=== PATIENT | male | born 1960 | race Caucasian/White ===

== ENCOUNTER 2022-06-27 12:09 | Emergency (ER) | payer OTHER, SELFPAY ==
[2022-06-27 12:55] VITALS: BP 172/91; PULSE 53; RESP 16; TEMP 36.9; O2SAT 99; BMI 29.3
--- NOTE | 2022-06-27 13:28 | ED_ITS ---
HPI - Wound/Laceration General Time Seen by Provider: 14:00 Date Seen: 06/27/22 Chief Complaint: Laceration/Wound Stated Complaint: Smashed L thumb Time Seen by Provider: 06/27/22 13:27 Source: patient and RN notes reviewed Mode of arrival: ambulatory Limitations: no limitations History of Present Illness HPI narrative: Patient is a 61-year-old male coming into the ER ambulatory of his own accord. He was at work in the [facility] when he had a hydraulic lice smashed his left thumb. He was initially taken via ambulance to 1 of the hospitals in the [facility], he was told was going to be over 6 hour wait. He did leave and then come to [place] of his own accord. He had an IV in place from EMS. I believe he had gotten some initial narcotic pain management from EMS, believe was fentanyl. He states narcotics do make him sick. He denies any numbness or tingling but states there was a lot of pain. He states he really cannot been his thumb or move his thumb much at all along the IP joint. He feels it is not just pain. He has some lacerations with this as well but is not actively bleeding at this time. Nursing staff ascertained his tetanus to be up-to-date in December of 2020. Place: work Patient tetanus UTD: No Related Data Home Medications Medication Instructions Recorded Confirmed ascorbic acid (vitamin C) 1,000 mg 1,000 mg PO DAILY 06/27/22 06/27/22 tablet,extended release (C Complex) Allergies Allergy/AdvReac Type Severity Reaction Status Date / Time No Known Drug Allergies Allergy Verified 06/27/22 12:54 Review of Systems Narrative: Nothing else was injured, just his thumb. PFSH PFSH Social History Smoking Status: Never smoker Second hand tobacco smoke exposure: No How often do you have six or more drinks on one occasion: Daily or almost daily AUDIT-C Alcohol total score: 4 Non-prescribed substance use: denies use service: No Exam Const: Vital Signs, click to edit/add: Vital Signs - 24 hr 06/27/22 12:55 06/27/22 14:19 Temperature 98.4 F Pulse Rate [Pulse Oximeter] 53 L 55 L Respiratory Rate 16 16 Blood Pressure [Ri ght Upper Arm] 172/91 H 160/86 H Pulse Oximetry 99 99 Oxygen Delivery Me thod Room Air Room Air Documenting provider has reviewed patient's vital signs: yes Common normals: no apparent distress, average body habitus, oriented x3, no limitations, healthy appearing, alert and well nourished General appearance: cooperative, comfortable, well kempt and well developed Other: His left thumb has an obliquely situated laceration that goes from medial aspect of the thumb just under the nail bed at the base and just over to the lateral side of the thumb on the dorsal surface. It looks like it is deep, the nail bed base certainly looks like it may have been altered in this and this wound is deep but it is not actively bleeding. He still can feel his distal thumb. Little more proximally on the lateral aspect of the thumb there is another small cut, again not actively bleeding. I can mobilize about the IP joint but is quite tender for him. Neuro: Common normals: oriented x3 Sensorium/orientation: alert Psych: Appearance: well kempt Course Course Hospital Course: Patient is obviously going to need imaging. He has an IV in place and we discussed pain management. His pain is intensifying. He gets ill with narcotics. Did discuss trying dose of Toradol which he would like to try, will order 15 mg of IV Toradol. I suspect he is going to need orthopedic hand surgery at some point. Reviewed with him what happens in that scenario is that we typically will close the wounds and he will follow-up. Reevaluation(s) Reevaluation #1: Did show patient pictures of his images showing a tuft fracture and the small avulsion fracture. Reviewed with them that I would be talking to orthopedic hand surgeon. They would like me to contact [facility] which I will do so. Reevaluation #2: Patient's finger is now totally numb. He states his pain is completely gone. Will have ED staff irrigate the wounds and then I will prepare for sutures. Time: 16:17 Additional Reevaluation(s): Meds given from [facility] at time of discharge. Gave the smallest amount available of oxycodone that was in there which was 10 tablets. Ordered Keflex 500 mg p.o. b.i.d. x7 days as well. Consultations Consultation #1: Spoke with Dr. Gillette the orthopedic hand surgeon from [facility]. Patient had requested that I speak with [facility]. She requested that I send her pictures an x-ray images which I did do, patient agreed with this. She did subsequently call me back, requested I irrigate out the wound, stitch up the soft tissue and she will see him in clinic tomorrow. Will also place him in a splint for comfort. Time: 15:54 Vital Signs Vital signs: Initial Vital Signs Temperature 98.4 F 06/27/22 12:55 Temperature Source Temporal Artery Scan 06/27/22 12:55 Pulse Rate 53 L 06/27/22 12:55 Pulse Rhythm 06/27/22 12:55 Pulse Strength 3+ Normal 06/27/22 12:55 Respiratory Rate 16 06/27/22 12:55 Blood Pressure 172/91 H 06/27/22 12:55 Blood Pressure Mean 118 06/27/22 12:55 Blood Pressure Position Sitting 06/27/22 12:55 Pulse Oximetry 99 06/27/22 12:55 Oxygen Delivery Method 06/27/22 12:55 Vital Signs Temperature 98.4 F 06/27/22 12:55 Pulse Rate 53 L 06/27/22 12:55 Respiratory Rate 16 06/27/22 12:55 Blood Pressure 172/91 H 06/27/22 12:55 Pulse Oximetry 99 06/27/22 12:55 Oxygen Delivery Method 06/27/22 12:55 Temperature 98.4 F 06/27/22 12:55 Pulse Rate 55 L 06/27/22 14:19 Respiratory Rate 16 06/27/22 14:19 Blood Pressure 160/86 H 06/27/22 14:19 Pulse Oximetry 99 06/27/22 14:19 Oxygen Delivery Method 06/27/22 14:19 MDM - Wound/Laceration Imaging Data X-ray left thumb: Attestation: I have reviewed the pertinent imaging results. My impression: I do see a comminuted tuft fracture and small avulsion fracture along the distal phalanx at the base on my preliminary read. Radiologist's impression: Patient: LESLI VERAS Facility:?[facility] Patient ID:?[id number] Site Patient ID:?[id number]. Site :?[id number] Study:?XRay Extremity Left THUMB-06/27/2022 2:24:57 PM Ordering Physician:?Allegra Yanez Final Report: INDICATION: Crush injury. TECHNIQUE: Left hand 1st digit, 3 views. COMPARISON: None. FINDINGS: There is an acute comminuted displaced fracture of the tuft of the 1st distal phalanx. There is also an acute nondisplaced intra-articular fracture of the base of the 1st distal phalanx. No dislocation. Soft tissue swelling and irregularity of the 1st digit. No radiopaque foreign body identified. IMPRESSION: 1. Acute nondisplaced intra-articular fracture of the base of the 1st distal phalanx and comminuted displaced fracture of the tuft. 2. Soft tissue swelling and irregularity about the 1st digit. Dictated by Cathi Akins MD @ 06/27/2022 3:24:57 PM (Electronic Signature) Critical Care Time Critical Care Time Critical Care Time: No Discharge Plan Discharge Clinical Impression: Fracture of phalanx of left thumb, Open fracture of tuft of distal phalanx of left thumb, Crushing injury of left thumb, initial encounter, Multiple lacerations Condition: Stable Instructions: Thumb Fracture (ED), Crush Injury (ED) Additional Instructions: Ice and elevate this thumb tonight to help decrease pain and swelling. Tylenol 1000 mg 3 times a day baseline for pain. Can supplement with ibuprofen or leave per bottle directions, use this 2nd line for pain management. I am prescribing a small prescription of oxycodone from [facility], one 5 mg tablet every 6 hours as needed for severe pain. Leave splint and dressing on tonight. Need to follow up with the orthopedic hand surgeon tomorrow as planned. Keep this thumb clean and dry. Start Keflex as prescribed, please ask the surgeon if she would like you to continue this once you see her tomorrow. Prescriptions: No Action C Complex 1,000 mg tablet extended release 1,000 mg PO DAILY Follow Up/Referrals: Provider,Not a Local [Primary Care Provider] - Stand Alone Forms: [facility] Info Instructions Procedures Laceration Laceration 1: Pre procedure diagnosis: Thumb laceration medial nail fold Post procedure diagnosis: Same Site marking: not applicable Verification/time out: correct patient, correct site and correct procedure Name of person performing procedure: Renata Dinh Site: other (Left thumb) Side (If applicable): left Size (cm): 0.5 Description: linear Local Anesthetic: lidocaine 1% Amount of anesthesia used (mL): 10 (Digital block done) Pre-repair: wound explored, irrigated extensively and deep structures i ntact Skin layer closed with: other (Ethilon) Size (cm): 4-0 Number of sutures: 2 Technique: simple, interrupted Wound cleansing: sterile water Estimated blood loss (if any): none Conclusion: patient tolerated procedure Laceration 2: Pre procedure diagnosis: Thumb laceration distal lateral pad Post procedure diagnosis: Same Site marking: not applicable Verification/time out: correct patient, correct site and correct procedure Name of person performing procedure: Renata Dinh Site: other (Thumb) Side (If applicable): left Size (cm): 0.5 Description: linear Depth: simple, single layer Local Anesthetic: lidocaine 1% Amount of anesthesia used (mL): 10 (Digital block) Pre-repair: wound explored, irrigated extensively and deep structures intact Skin layer closed with: other (Ethilon) Size (cm): 4-0 Number of sutures: 2 Technique: simple, interrupted Wound cleansing: sterile water Estimated blood loss (if any): none Conclusion: patient tolerated procedure Laceration 3: Pre procedure diagnosis: Thumb laceration along dorsal thumb, along nail bed at base Post procedure diagnosis: Same Site marking: not applicable Verification/time out: correct patient, correct site and correct procedure Name of person performing procedure: Renata Dinh Site: other (Thumb) Size (cm): 1.5 Description: linear Depth: involves tendon (Deep laceration, presumed tendon involvement) Local Anesthetic: lidocaine 1% Amount of anesthesia used (mL): 10 (Digital block) Pre-repair: wound explored and irrigated extensively Skin layer closed with: other (Ethilon) Size (cm): 4-0 Technique: running Estimated blood loss (if any): none Conclusion: patient tolerated procedure Laceration 4: Pre procedure diagnosis: Lateral laceration of proximal left thumb Post procedure diagnosis: Same Site marking: not applicable Verification/time out: correct patient, correct site and correct procedure Name of person performing procedure: Renata Dinh Site: other (Thumb) Side (If applicable): left Size (cm): 1.5 Description: linear (Definitely into deep structures) Local Anesthetic: lidocaine 1% Amount of anesthesia used (mL): 10 (Digital block) Pre-repair: wound explored and irrigated extensively Skin layer closed with: other (Ethilon) Size (cm): 4-0 Technique: running Wound cleansing: sterile water Estimated blood loss (if any): none Conclusion: patient tolerated procedure
--- NOTE | 2022-06-27 14:02 | CRLHL7_ITS ---
For Patients: As a result of the Cures Act, medical imaging exams and procedure reports are released immediately into your electronic medical record. You may view this report before your referring provider. If you have questions, please contact your health care provider. INDICATION: Crush injury. TECHNIQUE: Left hand 1st digit, 3 views. COMPARISON: None. FINDINGS: There is an acute comminuted displaced fracture of the tuft of the 1st distal phalanx. There is also an acute nondisplaced intra-articular fracture of the base of the 1st distal phalanx. No dislocation. Soft tissue swelling and irregularity of the 1st digit. No radiopaque foreign body identified. IMPRESSION: 1. Acute nondisplaced intra-articular fracture of the base of the 1st distal phalanx and comminuted displaced fracture of the tuft. 2. Soft tissue swelling and irregularity about the 1st digit. Dictated by Cathi Akins MD @ 06/27/2022 3:24:57 PM (Electronically Signed)
[2022-06-27] MEDS: KETOROLAC 15 MG/ML inj IVP (14:11)
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
[2022-06-27 14:19] VITALS: BP 160/86; PULSE 55; RESP 16; O2SAT 99
[2022-06-27] MEDS: LIDOCAINE 1 % PF 30 ML 10 ML INJECTION (16:00)
== END 2022-06-27 17:34 | disposition home or self-care (01) ==
PROVIDERS: Emergency Provider Family Medicine
DX: S62.522B Displaced fracture of distal phalanx of left thumb, initial encounter for open fracture (principal); W31.89XA Contact with other specified machinery, initial encounter; S61.112A Laceration without foreign body of left thumb with damage to nail, initial encounter
CPT/HCPCS: 12002; 73140; 96374; 99283; 99284; J1885; J2001